=== PATIENT | female | born 1960 | race Caucasian/White ===

== ENCOUNTER 2021-03-30 04:48 | Day surgery (SDC) | payer BC ==
[2021-03-25 09:33] VITALS: BMI 41.1
[2021-03-30] MEDS ORDERED: DEXAMETHASONE SOD PHOSPHATE 4 MG/1 ML VIAL ONE ×2 (07:16→07:58)
[2021-03-30] MEDS ORDERED: LIDOCAINE HCL 1%, 10 MG/ML (20ML VIAL) ONE (07:16)
[2021-03-30] MEDS ORDERED: BUPIVACAINE HCL/PF 0.5% (5MG/ML) 10 ML VIAL ONE (07:17)
[2021-03-30] MEDS ORDERED: LIDOCAINE HCL 1%, 10 MG/ML (20ML VIAL) NR ONE ×2 (07:28→07:55)
[2021-03-30] MEDS ORDERED: BUPIVACAINE HCL/PF 0.5% (5MG/ML) 10 ML VIAL IJ ONE ×2 (07:29→07:55)
[2021-03-30] MEDS ORDERED: DEXAMETHASONE SOD PHOSPHATE 4 MG/1 ML VIAL IVPUSH ONE ×2 (07:30→08:56)
[2021-03-30] MEDS ORDERED: GLYCOPYRROLATE 0.2 MG/1 ML VIAL ONE (07:40)
[2021-03-30] MEDS ORDERED: PROPOFOL 20 ML ONE ×2 (07:40)
[2021-03-30] MEDS ORDERED: MIDAZOLAM HCL 2 MG/2 ML SINGLE DOSE VIAL ONE (07:40)
[2021-03-30] MEDS ORDERED: LIDOCAINE HCL/PF 2% SDV 5ML VIAL ONE (07:51)
[2021-03-30] MEDS ORDERED: SODIUM CHLORIDE 0.9% P/F 10 ML VIAL IJ ONE (07:55)
[2021-03-30] MEDS ORDERED: ceFAZolin SODIUM 1 GM VIAL ONE (07:55)
[2021-03-30] MEDS ORDERED: ceFAZolin 2 GRAM PREMIX BAG IVPB ONE (07:55)
[2021-03-30] MEDS ORDERED: GENTAMICIN SO4 80 MG/2 ML VIAL ONE (08:17)
[2021-03-30] MEDS ORDERED: GENTAMICIN SO4 80 MG/2 ML VIAL IVPB ONE (08:20)
[2021-03-30] MEDS ORDERED: KETOROLAC TROMETHAMINE 30 MG/1 ML VIAL ONE (08:32)
[2021-03-30] MEDS ORDERED: TRIAMCINOLONE ACET 40MG/1ML VIAL ONE (08:49)
[2021-03-30] MEDS ORDERED: TRIAMCINOLONE ACET 40MG/1ML VIAL IM ONE (08:52)
[2021-03-30] MEDS ORDERED: BENZOIN/ALOE VERA/STORAX/TOLU 58 ML BOTTLE TP ONE (08:55)
[2021-03-30] MEDS ORDERED: ONDANSETRON 4 MG/2 ML VIAL IVPUSH PRN (09:20)
[2021-03-30] MEDS ORDERED: PROMETHAZINE HCL 25 MG/1 ML VIAL IVPUSH PRN (09:20)
[2021-03-30] MEDS ORDERED: oxyCODONE HCL 5 MG TABLET PO PRN (09:20)
[2021-03-30] MEDS ORDERED: LACTATED RINGERS SOLUTION 1,000 ML IV SCH (09:30)
[2021-03-30 10:59] VITALS: BP 119/68; PULSE 70; TEMP 97.1
== END 2021-03-30 11:35 | disposition home or self-care (01) ==
LOC: JASU-SURG 04:48
PROVIDERS: ATTEND Podiatrist
PROC: 0JBR0ZZ Excision of Left Foot Subcutaneous Tissue and Fascia, Open Approach (ICD-10-PCS; 2021-03-30)
PROC: 0SRQ0JZ Replacement of Left Toe Phalangeal Joint with Synthetic Substitute, Open Approach (ICD-10-PCS; principal; 2021-03-30 07:30)
DX: M20.12 Hallux valgus (acquired), left foot (principal); M20.42 Other hammer toe(s) (acquired), left foot; D21.22 Benign neoplasm of connective and other soft tissue of left lower limb, including hip
CPT/HCPCS: 73630-TC-LT; 88304-TC; 88305-TC; 88311-TC; 88341-TC; 88342-TC; 94760

== ENCOUNTER 2021-04-10 04:40 | Day surgery (SDC) | payer BC ==
[2021-04-08 12:56] VITALS: BMI 41.1
[2021-04-10] MEDS ORDERED: MIDAZOLAM HCL 2 MG/2 ML SINGLE DOSE VIAL ONE ×2 (08:19)
[2021-04-10] MEDS ORDERED: PROPOFOL 20 ML ONE ×2 (08:19→09:37)
[2021-04-10] MEDS ORDERED: BUPIVACAINE HCL/PF 0.5% (5MG/ML) 10 ML VIAL ONE (08:22)
[2021-04-10] MEDS ORDERED: LIDOCAINE HCL 1%, 10 MG/ML (20ML VIAL) ONE (08:22)
[2021-04-10] MEDS ORDERED: GENTAMICIN SO4 80 MG/2 ML VIAL ONE (09:11)
[2021-04-10] MEDS ORDERED: LIDOCAINE HCL 1%, 10 MG/ML (20ML VIAL) NR ONE (09:31)
[2021-04-10] MEDS ORDERED: BUPIVACAINE HCL/PF 0.5% (5MG/ML) 10 ML VIAL IJ ONE ×2 (09:31→10:30)
[2021-04-10] MEDS ORDERED: ceFAZolin SODIUM 1 GM VIAL ONE (09:38)
[2021-04-10] MEDS ORDERED: KETOROLAC TROMETHAMINE 30 MG/1 ML VIAL ONE (09:38)
[2021-04-10] MEDS ORDERED: ONDANSETRON 4 MG/2 ML VIAL ONE (09:38)
[2021-04-10] MEDS ORDERED: DEXAMETHASONE SOD PHOSPHATE 4 MG/1 ML VIAL ONE ×2 (09:38→09:47)
[2021-04-10] MEDS ORDERED: ONDANSETRON 4 MG/2 ML VIAL IVPUSH PRN (10:29)
[2021-04-10] MEDS ORDERED: oxyCODONE HCL 5 MG TABLET PO PRN ×2 (10:29)
[2021-04-10] MEDS ORDERED: LACTATED RINGERS SOLUTION 1,000 ML IV SCH (10:30)
[2021-04-10 11:48] VITALS: BP 116/66; PULSE 74; TEMP 97.3
== END 2021-04-10 12:32 | disposition home or self-care (01) ==
LOC: JASU-SURG 04:40
PROVIDERS: ATTEND Podiatrist
PROC: 0QSN04Z Reposition Right Metatarsal with Internal Fixation Device, Open Approach (ICD-10-PCS; principal; 2021-04-10 09:21)
DX: M20.11 Hallux valgus (acquired), right foot (principal)
CPT/HCPCS: 73630-TC-RT-FY; 88304-TC; 88311-TC

== ENCOUNTER → 2023-08-31 | Day surgery (SDC) | payer BC | END | disposition home or self-care (01) | LOC: JRADIR 10:25 | PROVIDERS: ATTEND Nurse Practitioner Family | PROC: 0G9G3ZX Drainage of Left Thyroid Gland Lobe, Percutaneous Approach, Diagnostic (ICD-10-PCS; principal; 2023-08-31) | DX: E04.1 Nontoxic single thyroid nodule (principal) | CPT/HCPCS: 10005; 76942; 88173; 88305-TC ==

== ENCOUNTER → 2024-09-27 | Day surgery (SDC) | payer BC | END | disposition home or self-care (01) | LOC: JRADIR 09:11 | PROVIDERS: ATTEND Nurse Practitioner Family | PROC: 0G9G3ZX Drainage of Left Thyroid Gland Lobe, Percutaneous Approach, Diagnostic (ICD-10-PCS; principal; 2024-09-27) | DX: E04.1 Nontoxic single thyroid nodule (principal) | CPT/HCPCS: 76942; 88173; 88305-TC ==